=== PATIENT | male | born 1965 | race Caucasian/White ===

== ENCOUNTER 2017-06-12 18:25 | Emergency (ER) | payer MEDICAID ==
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
[2017-06-12] MEDS ORDERED: CHLORDIAZEPOXIDE 25MG PREPK#6 BTL TAKEHOME ONE (20:01)
[2017-06-12 20:10] VITALS: BP 108/72
== END 2017-06-12 20:32 | disposition home or self-care (01) ==
LOC: EDUNIT#
DX: S09.90XA Unspecified injury of head, initial encounter (principal); S16.1XXA Strain of muscle, fascia and tendon at neck level, initial encounter; F10.920 Alcohol use, unspecified with intoxication, uncomplicated; F17.200 Nicotine dependence, unspecified, uncomplicated; W18.39XA Other fall on same level, initial encounter; Y92.521 Bus station as the place of occurrence of the external cause; Y99.8 Other external cause status; Y93.84 Activity, sleeping

== ENCOUNTER 2017-06-16 12:58 | Emergency (ER) | payer MEDICAID ==
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
[2017-06-16] MEDS ORDERED: CHLORDIAZEPOXIDE 25MG PREPK#6 BTL TAKEHOME ONE ×2 (17:51→17:52)
[2017-06-16 19:10] VITALS: BP 155/80
== END 2017-06-16 19:33 ==
DX: S09.90XA Unspecified injury of head, initial encounter (principal); F10.920 Alcohol use, unspecified with intoxication, uncomplicated; F17.200 Nicotine dependence, unspecified, uncomplicated; X99.8XXA Assault by other sharp object, initial encounter

== ENCOUNTER 2017-07-21 19:07 | Emergency (ER) | payer MEDICAID ==
[2017-07-21 19:25] VITALS: BP 113/76
[2017-07-21] MEDS ORDERED: diphenhydrAMINE 25 MG CAP PO ONE (19:37)
--- NOTE | 2017-07-21 19:42 | EDPHY ---
H & P Time Seen by Provider: 07/21/17 19:19 HPI/ROS: CHIEF COMPLAINT: Rash HISTORY OF PRESENT ILLNESS: This is a 51-year-old male who presents emergency department reporting that he developed a rash this morning. Last night he he was outside felt like he was having multiple mosquito bites but this morning when he woke he noticed a multiple discrete itchy red bumps on his face, chest, upper back, and onto the abdomen. Of note the patient's friend's children, aged 7 in 10, have chickenpox. Patient himself has a slight cough. He cannot recall if he had chickenpox when he was a kid. No fever. No shortness of breath. No vomiting or diarrhea. No headache or lightheadedness. REVIEW OF SYSTEMS: Aside from elements discussed in the HPI, a comprehensive 10-point review of systems was reviewed and is negative. PAST MEDICAL HISTORY: Former alcoholic., pancreatitis, seizure history. SOCIAL HISTORY: Reports that he no longer drinks. Reports that he no longer smokes cigarettes. VITAL SIGNS: see nurse's notes. Afebrile. GENERAL: Well-developed, well-nourished, in no acute distress. HEENT: Normal, no discharge or icterus, moist mucous membranes. Neck: supple, FROM. LUNGS: Slightly coarse breath sounds, no wheezes, rhonchi or rales. No respiratory distress. CARDIAC: Regular rate and rhythm, no rubs, murmurs or gallops. ABDOMEN: Soft, nontender, nondistended, bowel sounds normal. BACK: No CVA tenderness. No vertebral tenderness. EXTREMITIES: No edema, FROM. NEURO: Alert and oriented, grossly nonfocal. SKIN: Multiple discrete macular papular lesions, several are fluid filled but without a true vesicle appearance. Several appear almost pustular. The majority have no fluid or purulence. Excoriations on several lesions. No crusting. Smoking Status: Former smoker Constitutional: Initial Vital Signs Temperature (C) 37.2 C 07/21/17 19:15 Heart Rate 56 L 07/21/17 19:15 Respiratory Rate 16 07/21/17 19:15 Blood Pressure 113/76 07/21/17 19:15 O2 Sat (%) 91 L 07/21/17 19:15 O2 Delivery Mode Room Air Allergies/Adverse Reactions: No Known Allergies Allergy (Verified 07/21/17 19:19) Home Medications: Medication Instructions Recorded Valacyclovir HCl [Valtrex] 1,000 mg PO TID #21 tab 07/21/17 MDM/Departure - MDM Medications Given: Discontinued Medications Diphenhydramine HCl (Benadryl) 25 mg PO EDNOW ONE Stop: 07/21/17 19:38 Last Admin: 07/21/17 19:47 Dose: 25 mg ED Course/Re-evaluation: 51-year-old male presenting with itchy macular papular rash with occasional pustular/vesicular appearance. He evidently has recently been exposed to chickenpox. He is unclear if he ever had chickenpox as a child. Overall the patient looks well. He has a slight cough but it is not productive of any sputum and his lungs are clear. The rash is not a classic varicella rash although IM concern given his history of potential exposure. Several of the lesions were unroofed and swabs were taken which were sent to the lab. Patient was provided prescription for valacyclovir to be taken if the VZV tests is positive. He was given Benadryl for the itching. He believes that the rash is simply multiple mosquito bites. Please see the discharge instructions. Patient instructed regarding using Benadryl for the itching. If the rash improves to be chickenpox, he was also advised regarding contact precautions and to stay away from women. As mentioned above he was given a prescription for valacyclovir. If the rash is not parasellar, I suggest the patient continue Benadryl for itching, and observation. Patient himself as mentioned above thinks that these multiple discrete lesions may all be mosquito bites. He was advised to return to the emergency department or seek care urgently if he was not improving as expected with supportive care and to follow up with Infectious Disease if he in fact has chickenpox. Differential Diagnosis: Differential diagnosis of the patient's rash was considered including but not limited to allergic reaction, urticaria, viral exanthem, bug bites, varicella, folliculitis, cellulitis. - Depart Disposition: Home, Routine, Self-Care Clinical Impression: Rash Varicella Qualifiers: Varicella complications: unspecified complication Qualified Code(s): B01.89 - Other varicella complications Condition: Good Instructions: Chickenpox (ED), Acute Rash (ED) Additional Instructions: The rash may represent chicken pox. We have taken a swab and this will be tested for varicella, which is the cause of chicken pox. If the swabs are positive you should begin taking valacyclovir. You have been given a prescription. You can take Benadryl 25-50 mg every 6-8 hours as needed for severe itching. Calamine lotion and Aveeno baths will also help with the itching. These are available [id number]. If you do have chickenpox it is very important that you stay away from unvaccinated children and especially from women. Chickenpox is extremely contagious. If this is chicken pox, 1 of the hallmarks is that the rash will continue to break out on the abdomen , back , and even on to the legs. Then you will also noticed crusting of the lesions starting at the head and traveling down the body. Chicken pox in older adults can be very dangerous. If you develop cough, shortness of breath, chest pain, vomiting, be sure you are seen immediately. If the varicella test is negative, I would recommend that you continue with Benadryl for itching, calamine lotion for itching, and follow up with your primary care physician if the rash is not improving on its own. Prescriptions: Valacyclovir HCl [Valtrex] 1,000 mg PO TID #21 tab Referrals: NONE *PRIMARY CARE P,. [Primary Care Provider] - As per Instructions Crow Heller MD [Medical Doctor] - As per Instructions (Dr. Heller is an infectious disease specialist. Please follow up with him if this is chicken pox.)
== END 2017-07-21 20:01 | disposition home or self-care (01) ==
LOC: CED 19:07
DX: B01.89 Other varicella complications (principal); Z87.891 Personal history of nicotine dependence
CPT/HCPCS: 87798-90

== ENCOUNTER 2018-04-28 08:30 | Emergency (ER) | payer MEDICAID, OTHER ==
--- NOTE | 2018-04-28 08:40 | EDPHY ---
H & P Time Seen by Provider: 04/28/18 08:40 Constitutional: Initial Vital Signs Temperature (C) 36 C 04/28/18 08:30 Heart Rate 73 04/28/18 08:30 Respiratory Rate 16 04/28/18 08:30 Blood Pressure 119/90 H 04/28/18 08:30 O2 Sat (%) 89 L 04/28/18 08:30 O2 Delivery Mode Room Air O2 (L/minute) 2 Allergies/Adverse Reactions: Unable to Assess Allergy (Unverified 04/28/18 08:55) Home Medications: Medication Instructions Recorded Unobtainable 04/28/18 Medical Decision Making - Diagnostics Imaging Results: Imaging Impressions Head CT 04/28/18 08:50 Impression: Negative. No acute intracranial hemorrhage or fracture. Findings discussed with Emergency Department physician, Yon Fisher MD on at 9:27 a.m. Imaging: Discussed imaging studies w/ stripping and booking machine operator Radiologist, I viewed and interpreted images myself ED Course/Re-evaluation: CHIEF COMPLAINT: Alcohol intoxication. HISTORY OF PRESENT ILLNESS: The patient is a chronic alcoholic living on the [address]. Patient drinks on a daily basis and obtains whatever alcohol is available. Patient was found by bystanders who called EMS system. Patient has had multiple ER visits over the last several years for the same complaint. Patient is currently somnolent and unable to answer questions. REVIEW OF SYSTEMS: Unable to obtain secondary to patient's mental status. PHYSICAL EXAM: General Appearance: Somnolent and appears intoxicated. Head: Atraumatic without scalp tenderness or obvious injury Eyes: Pupils equal, round, reactive to light and accommodation, EOMI, no trauma , no injection. Ears: Clear bilaterally, no perforation, normal landmarks Nose: Atraumatic, no rhinorrhea, clear. Throat: There is no erythema or exudates, no lesions, normal tonsils, mucus membranes moist. Neck: Supple, 2+ carotid upstroke, nontender, no lymphadenopathy. Respiratory: No retractions, no distress, no wheezes, and no accessory muscle use. Lungs are clear to auscultation bilaterally. Cardiovascular: Regular rate and rhythm, no murmurs, rubs, or gallops. Bilateral carotid, radial, dorsalis pedis, and posterior tibial pulses intact. Good capillary refill all extremities. Gastrointestinal: Abdomen is soft, nontender, non-distended, no masses, no rebound, no guarding, no peritoneal signs. Musculoskeletal: Normal active ROM of all extremities, atraumatic. Neurological: Somnolent. The patient has normal DTRs and non-focal cranial nerves, motor, sensory, and cerebellar exam. Skin: No rashes, good turgor, no nodules on palpation. PAST MEDICAL HISTORY: Unknown PAST SURGICAL HISTORY: Unknown SOCIAL HISTORY: Unknown DIAGNOSTICS/PROCEDURES/CRITICAL CARE TIME: Head CT: No acute findings. DIFFERENTIAL DIAGNOSIS: The differential diagnosis for the patient's altered mental status included but was not limited to hypoglycemia, infectious process, electrolyte abnormality, head injury, neurologic process, anemia, cardiac process, and intoxicants. MEDICAL DECISION MAKING: The patient is arriving via EMS after being found down. He does appear intoxicated. As it is unknown if he fell and hit his head I will order a CT. 0926: I spoke with Dr. Mi, radiologist, who reports that there are no acute findings on patients head CT. 1038: I serially examined this patient since the patient's arrival here in the emergency department. The patient continues to become more and more sober with each examination. 1300: I serially questioned the patient and the patient's story given initially has not changed. The patient still denies any trauma, any head injury, and any illicit drug use. At this point, the patient is walking the department freely and is clinically sober. We're discharging the patient to the [facility] in stable condition. - Data Points Laboratory Results: Laboratory Results 04/28/18 09:40 04/28/18 09:40 04/28/18 04/28/18 09:40 09:40 WBC 10.94 10^3/uL H 10^3/uL (3.80-9.50) RBC 5.46 10^6/uL 10^6/uL (4.40-6.38) Hgb 15.7 g/dL g/dL (13.7-17.5) Hct 47.7 % % (40.0-51.0) MCV 87.4 fL fL (81.5-99.8) MCH 28.8 pg pg (27.9-34.1) MCHC 32.9 g/dL g/dL (32.4-36.7) RDW 13.5 % % (11.5-15.2) Plt Count 227 10^3/uL 10^3/uL (150-400) MPV 9.1 fL fL (8.7-11.7) Neut % (Auto) 63.7 % % (39.3-74.2) Lymph % (Auto) 25.0 % % (15.0-45.0) Dauphin % (Auto) 9.0 % % (4.5-13.0) Eos % (Auto) 1.1 % % (0.6-7.6) Baso % (Auto) 0.7 % % (0.3-1.7) Nucleat RBC Rel Count 0.0 % % (0.0-0.2) Absolute Neuts (auto) 6.98 10^3/uL H 10^3/uL (1.70-6.50) Absolute Lymphs (auto) 2.73 10^3/uL 10^3/uL (1.00-3.00) Absolute Monos (auto) 0.98 10^3/uL H 10^3/uL (0.30-0.80) Absolute Eos (auto) 0.12 10^3/uL 10^3/uL (0.03-0.40) Absolute Basos (auto) 0.08 10^3/uL 10^3/uL (0.02-0.10) Absolute Nucleated RBC 0.00 10^3/uL 10^3/uL (0-0.01) Immature Gran % 0.5 % % (0.0-1.1) Immature Gran # 0.05 10^3/uL 10^3/uL (0.00-0.10) Sodium 142 mEq/L mEq/L (135-145) Potassium 4.4 mEq/L mEq/L (3.5-5.2) Chloride 104 mEq/L mEq/L (97-110) Carbon Dioxide 27 mEq/l mEq/l (22-31) Anion Gap 11 mEq/L mEq/L (6-14) BUN 13 mg/dL mg/dL (7-23) Creatinine 0.7 mg/dL mg/dL (0.7-1.3) Estimated GFR > 60 Glucose 109 mg/dL H mg/dL (70-100) Calcium 8.5 mg/dL mg/dL (8.5-10.4) Total Bilirubin 0.4 mg/dL mg/dL (0.1-1.4) Conjugated Bilirubin 0.4 mg/dL mg/dL (0.0-0.5) Unconjugated Bilirubin 0.0 mg/dL mg/dL (0.0-1.1) AST 30 IU/L IU/L (17-59) ALT 42 IU/L IU/L (21-72) Alkaline Phosphatase 145 IU/L H IU/L (38-126) Total Protein 7.0 g/dL g/dL (6.3-8.2) Albumin 4.1 g/dL g/dL (3.5-5.0) Lipase 117 IU/L IU/L (23-300) Ethyl Alcohol 400 mg/dL H mg/dL (0-10) Medications Given: Discontinued Medications Chlordiazepoxide (Librium 25 Mg Prepack#6) 1 btl TAKEHOME EDNOW ONE Stop: 04/28/18 12:51 Last Admin: 04/28/18 12:55 Dose: 1 btl Sodium Chloride (Ns) 1,000 mls @ 0 mls/hr IV EDNOW ONE; Wide Open PRN Reason: Protocol Stop: 04/28/18 09:28 Last Admin: 04/28/18 09:45 Dose: 1,000 mls Departure - Departure Disposition: Home, Routine, Self-Care Clinical Impression: Alcoholic intoxication Qualifiers: Complication of substance-induced condition: uncomplicated Qualified Code(s): F10.920 - Alcohol use, unspecified with intoxication, uncomplicated Condition: Good Instructions: Alcohol Intoxication (ED) Additional Instructions: 1. Please refrain from abusing alcohol. 2. Return to the emergency department immediately for fever, vomiting, confusion , headache, abdominal pain or other worsening of condition. 3. Followup with your primary care physician within 72 hours for reevaluation. Referrals: [facility] [Outside] - As per Instructions Report Scribed for: Yon Fisher Report Scribed by: Ana Tucker Date of Report: 04/28/18 Time of Report: 08:55
[2018-04-28] MEDS ORDERED: NS 1,000 ML IV ONE (09:27)
[2018-04-28 10:10] LABS: PLATELET COUNT 227 10^3/uL (150-400)
[2018-04-28] MEDS ORDERED: CHLORDIAZEPOXIDE 25MG PREPK#6 BTL TAKEHOME ONE (12:50)
[2018-04-28 13:08] VITALS: BP 111/80
== END 2018-04-28 13:08 | disposition home or self-care (01) ==
LOC: EDBD 08:30 → MERGE 08:30
DX: F10.920 Alcohol use, unspecified with intoxication, uncomplicated (principal); E86.9 Volume depletion, unspecified
CPT/HCPCS: G0480

== ENCOUNTER 2018-06-14 00:02 | Emergency (ER) | payer MEDICAID ==
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
[2018-06-14 06:58] VITALS: BP 118/76
== END 2018-06-14 06:45 | disposition home or self-care (01) ==
LOC: EDBD → EDUNIT#
DX: F10.920 Alcohol use, unspecified with intoxication, uncomplicated (principal)

== ENCOUNTER 2018-06-18 11:19 | Emergency (ER) | payer MEDICAID ==
[2018-06-18] MEDS ORDERED: CHLORDIAZEPOXIDE 25MG PREPK#6 BTL TAKEHOME ONE (11:22)
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
[2018-06-18 11:24] VITALS: BP 115/76
== END 2018-06-18 13:24 | disposition home or self-care (01) ==
LOC: EDUNIT#
DX: F10.20 Alcohol dependence, uncomplicated (principal)